=== PATIENT | male | born 1980 | race Caucasian/White ===

== ENCOUNTER 2016-10-10 16:10 | Emergency (ER) | payer OTHER ==
[~2016-10-10] VITALS: Ht 177.8 cm; Wt 108.9 kg
[2016-10-10] MEDS ORDERED: IBUP600T26 PO (16:25)
[2016-10-10] MEDS ORDERED: RANI300C PO (16:25)
[2016-10-10] MEDS ORDERED: FLON1SPR (16:25)
[2016-10-10] MEDS ORDERED: LYRI100C10 PO (16:25)
[2016-10-10] MEDS ORDERED: CYCL10TA PO (16:25)
[2016-10-10] MEDS ORDERED: ZYRT10CA PO (16:25)
[2016-10-10] MEDS ORDERED: OXYC1SOL PO (16:25)
[2016-10-10] MEDS ORDERED: ONDANSETRON 4MG/2ML VIAL (J2405) IV ONE (17:15)
[2016-10-10] MEDS ORDERED: NS 1,000 ML IV ONE ×2 (17:15→18:45)
[2016-10-10 17:26] LABS: BASO % 0.2 % (0.0-1.0); EOS # 0.1 K/mm3 (0.0-0.50); EOS % 1.1 % (0.0-3.0); LARGE UNSTAINED CELL # 0.2 K/mm3 (0.0-0.4); LARGE UNSTAINED CELL % 1.5 % (0.0-4.0); LYMPH # 0.9 K/mm3 (1.5-4.5); LYMPH % 7.8 % (24.0-44.0); MEAN CORPUSCULAR HGB CONC 34.5 g/dl (32.0-36.5); MEAN CORPUSCULAR VOLUME 86.7 fl (80.0-96.0); MONO # 0.6 K/mm3 (0.0-0.8); MONO % 5.4 % (0.0-5.0); NEUTROPHILS # 9.7 K/mm3 (1.8-7.7); PLATELET COUNT, AUTOMATED 178 k/mm3 (150-450); RED CELL DISTRIBUTION WIDTH 12.9 % (11.5-14.5); WHITE BLOOD COUNT 11.5 K/mm3 (4.0-10.0)
[2016-10-10 17:52] LABS: ALBUMIN 4.1 GM/DL (3.2-5.2); ALBUMIN/GLOBULIN RATIO 1.21 (1.00-1.93); ALKALINE PHOSPHATASE 50 U/L (45-117); ALT/SGPT 56 U/L (12-78); AMYLASE 39 U/L (25-115); ANION GAP 9 MEQ/L (8-16); AST/SGOT 35 U/L (15-37); BILIRUBIN,DIRECT 0.2 MG/DL (0.0-0.2); BILIRUBIN,TOTAL 0.8 MG/DL (0.2-1.0); BLOOD UREA NITROGEN 17 MG/DL (7-18); CALCIUM LEVEL 8.7 MG/DL (8.5-10.1); CARBON DIOXIDE LEVEL 23 MEQ/L (21-32); CHLORIDE LEVEL 106 MEQ/L (98-107); CREATININE FOR GFR 1.05 MG/DL (0.70-1.30); GLOMERULAR FILTRATION RATE > 60.0 (>60); GLUCOSE, FASTING 111 MG/DL (70-105); POTASSIUM SERUM 4.1 MEQ/L (3.5-5.1); SODIUM LEVEL 138 MEQ/L (136-145); TOTAL PROTEIN 7.5 GM/DL (6.4-8.2)
[2016-10-10] MEDS ORDERED: ISOVUE-370 76% 100ML VIAL (Q9967) As Ordered ONE (18:09)
--- NOTE | 2016-10-10 18:10 | REP ---
ABDOMINAL SERIES: REASON: Abdominal pain. COMPARISON: No priors. FINDINGS: Supine and upright views of the abdomen show the intestinal gas pattern to be nonspecific. Gas and stool is seen throughout the colon within the rectosigmoid region. The organ silhouettes insofar as delineated appear unremarkable. No abdominal calcific densities are seen within the abdomen or pelvis. The accompanying single frontal view of the chest shows no free subdiaphragmatic air, cardiomegaly, infiltrates or effusions. IMPRESSION: Nonspecific intestinal gas pattern. Signed by Florencio Banks DO 10/10/2016 07:11 P
--- NOTE | 2016-10-10 19:30 | REP ---
CT ABDOMEN AND PELVIS WITH IV CONTRAST ONLY: REASON: Abdominal pain. PRIORS: None. CONTRAST: 100 mL [id number]. The lung bases are clear. The liver, gallbladder, spleen, pancreas, adrenal glands, and kidneys are within normal limits. The abdominal aorta and paraaortic regions are within normal limits. There are a few nonenlarged lymph nodes in the celiac axis and adjacent to the superior mesenteric artery. There is no free fluid or free air. The bowel loops and their mesenteries are within normal limits. There is no intraabdominal mass or adenopathy. CT PELVIS: There Is no mass or adenopathy. There Is no free fluid or free air. The bowel loops and their mesenteries are within normal limits. Bone window technique throughout the exam shows the osseous structure to be within normal limits for the patient's age. IMPRESSION: CT findings are within normal limits. Signed by Florencio Banks DO 10/10/2016 07:34 P
[2016-10-10] MEDS ORDERED: ZOFR4TAB3 PO (19:52)
[2016-10-10 20:10] VITALS: BP 128/64
== END 2016-10-10 20:41 | disposition home or self-care (01) ==
LOC: M ED 17:12
DX: R10.9 Unspecified abdominal pain (principal); R11.10 Vomiting, unspecified
CPT/HCPCS: 74022; 74177; 80048; 80076; 81001; 82150; 83605; 83690; 85025; 87040; 87086; 93041; 96361; 96374; 99284; J2405; Q9967

== ENCOUNTER 2017-04-06 18:05 | Emergency (ER) | payer OTHER ==
[~2017-04-06] VITALS: Ht 177.8 cm; Wt 113.6 kg
[~2017-04-06 18:05] MED LIST: CYCL10TA PO; FLON1SPR; IBUP-1022 PO; OXYC1SOL3 PO; PREG100CA PO; RANI300C PO; ZOFR4TAB3 PO; ZYRT10CA PO
[2017-04-06] MEDS ORDERED: NYQU1LIQ PO (18:16)
[2017-04-06] MEDS ORDERED: ONDANSETRON 4MG/2ML VIAL (J2405) IV ONE (18:45)
[2017-04-06] MEDS ORDERED: NS 1,000 ML IV ONE (18:45)
[2017-04-06] MEDS ORDERED: PANTOPRAZOLE 40MG INJ (PROTONIX) (C9113) IV ONE (18:45)
[2017-04-06] MEDS ORDERED: IPRATROPIUM 0.5MG/ALBUTEROL 2.5MG INH SOL UD 3ML (DUONEB)(J7620) NEB ONE (18:45)
--- NOTE | 2017-04-06 19:19 | REP ---
Abdominal series: Four views. History: Abdominal pain. Findings: Upright chest radiograph shows no evidence of infiltrate or free subdiaphragmatic air. Heart is not enlarged. Pulmonary vasculature is not increased. Supine and erect views of the abdomen demonstrate one or two small air-fluid levels in the colon. The abdomen is largely gasless. No large or small bowel dilation is seen. Psoas margins and flank stripes are intact. No mass or organomegaly is seen. No pathologic calcification noted. Impression: Small quantity of air and fluid in the colon. Otherwise essentially gasless abdomen. No other significant finding. Signed by Raffaele Connor MD 04/06/2017 07:51 P
[2017-04-06 19:48] LABS: BASO # 0.1 10^3/uL (0.0-0.2); BASO % 0.6 % (0.0-1.0); EOS # 0.2 10^3/uL (0.0-0.50); EOS % 1.3 % (0.0-3.0); IMMATURE GRANULOCYTE % 0.3 % (0-0); LYMPH # 1.5 10^3/uL (1.5-4.5); LYMPH % 11.9 % (24.0-44.0); MEAN CORPUSCULAR HGB CONC 35.3 g/dl (32.0-36.5); MEAN CORPUSCULAR VOLUME 84.9 fl (80.0-96.0); MONO # 1.2 10^3/uL (0.0-0.8); MONO % 9.4 % (0.0-5.0); NEUTROPHILS # 9.8 10^3/uL (1.8-7.7); NEUTROPHILS % 76.5 % (36.0-66.0); PLATELET COUNT, AUTOMATED 292 10^3/uL (150-450); WHITE BLOOD COUNT 12.9 10^3/uL (4.0-10.0)
[2017-04-06 19:57] VITALS: BP 123/93
[2017-04-06 20:19] LABS: ALBUMIN 5.1 GM/DL (3.2-5.2); ALBUMIN/GLOBULIN RATIO 1.19 (1.00-1.93); BILIRUBIN,DIRECT 0.2 MG/DL (0.0-0.2); BILIRUBIN,TOTAL 0.7 MG/DL (0.2-1.0); CALCIUM LEVEL 10.4 MG/DL (8.5-10.1); CREATININE FOR GFR 1.65 MG/DL (0.70-1.30); POTASSIUM SERUM 4.2 MEQ/L (3.5-5.1); TOTAL PROTEIN 9.4 GM/DL (6.4-8.2)
[2017-04-06] MEDS ORDERED: MORPHINE 4 MG/ML 1ML SYRINGE IV ONE (20:30)
[2017-04-06] MEDS ORDERED: ZOFR4TAB3 PO (20:46)
== END 2017-04-06 21:06 | disposition home or self-care (01) ==
LOC: M ED 18:05
DX: K52.9 Noninfective gastroenteritis and colitis, unspecified (principal); G89.29 Other chronic pain; Z79.899 Other long term (current) drug therapy; Z87.891 Personal history of nicotine dependence
CPT/HCPCS: 74022; 80048; 80076; 82150; 83690; 85025; 94640; 96361; 96374; 96375; 99283; C9113; J2405

== ENCOUNTER 2020-06-25 14:40 | Emergency (ER) | payer OTHER ==
[~2020-06-25] VITALS: Ht 177.8 cm; Wt 109.6 kg
[~2020-06-25 14:40] MED LIST changes: +CYCL-707 PO; -CYCL10TA PO; +NYQU1LIQ PO; +ZOFR4TAB14 PO; -ZOFR4TAB3 PO
[2020-06-25 14:41] VITALS: BP 133/76
[2020-06-25] MEDS ORDERED: predniSONE 20 MG TAB PO ONE (18:30)
[2020-06-25] MEDS ORDERED: LIDOCAINE 5% (LIDODERM) PATCH TD ONE (18:30)
[2020-06-25] MEDS ORDERED: KETOROLAC 60MG 2ML VIAL IM ONE (18:30)
[2020-06-25] MEDS ORDERED: diazePAM 5MG TABLET PO ONE (18:30)
[2020-06-25] MEDS ORDERED: **NOTE PATIENT COMMENT** MISC XX SCH (21:00)
== END 2020-06-25 18:37 | disposition left against medical advice (07) ==
LOC: M ED 14:40
DX: M54.5 Low back pain (principal); I10 Essential (primary) hypertension; F33.9 Major depressive disorder, recurrent, unspecified; F41.9 Anxiety disorder, unspecified; K21.9 Gastro-esophageal reflux disease without esophagitis; Z79.899 Other long term (current) drug therapy

== ENCOUNTER → 2020-08-03 | Outpatient (CLI) | payer SELFPAY | LOC: M LABSMTC 10:46 | PROVIDERS: ATTEND Pediatrics | DX: Z20.822 Contact with and (suspected) exposure to COVID-19 (principal) ==

== ENCOUNTER 2021-02-26 17:38 | Emergency (ER) | payer MEDICAID, OTHER ==
[~2021-02-26] VITALS: Ht 177.8 cm; Wt 101.7 kg
--- NOTE | 2021-02-26 19:01 | REP ---
INDICATION: CHEST PAIN. COMPARISON: Comparison chest x-ray April 06, 2017. TECHNIQUE: Portable upright AP chest radiograph. Two views. FINDINGS: The lungs are well inflated and free of infiltrate. Pleural angles are sharp. Heart size is normal. Pulmonary vasculature is not increased. EKG monitoring electrodes are visible. IMPRESSION: No active disease. <Electronically signed by Jesus Connor > 02/26/21 [id number]
[2021-02-26 19:02] LABS: BLOOD UREA NITROGEN 12 MG/DL (7-18); CALCIUM LEVEL 9.2 MG/DL (8.5-10.1); CARBON DIOXIDE LEVEL 26 MEQ/L (21-32); CHLORIDE LEVEL 105 MEQ/L (98-107); CK-MB VALUE MASS 3.3 NG/ML (<3.6); CPK CREATINE PHOSPHOKINASE 209 U/L (39-308); CREATININE FOR GFR 1.23 MG/DL (0.70-1.30); GLOMERULAR FILTRATION RATE > 60.0 (>60); GLUCOSE, FASTING 100 MG/DL (70-100); MB/CK RELATIVE INDEX 1.58 (< OR =4); POTASSIUM SERUM 3.3 MEQ/L (3.5-5.1); SODIUM LEVEL 138 MEQ/L (136-145); TROPONIN I < 0.02 NG/ML (< 0.10)
[2021-02-26 19:04] LABS: BASO % 0.5 % (0.0-1.0); EOS # 0.1 10^3/uL (0.0-0.5); EOS % 1.1 % (0.0-3.0); HEMATOCRIT 47.1 % (42.0-52.0); HEMOGLOBIN 16.6 g/dl (13.5-17.5); LYMPH # 3.2 10^3/uL (1.5-5.0); LYMPH % 37.3 % (24.0-44.0); MEAN CORPUSCULAR HGB CONC 35.2 g/dl (32.0-36.5); MONO # 0.8 10^3/uL (0.0-0.8); MONO % 9.3 % (2.0-8.0); NEUTROPHILS # 4.4 10^3/uL (1.5-8.5); NEUTROPHILS % 51.4 % (36.0-66.0); PLATELET COUNT, AUTOMATED 222 10^3/uL (150-450); RED BLOOD COUNT 5.54 10^6/uL (4.30-6.10); WHITE BLOOD COUNT 8.5 10^3/uL (4.0-10.0)
[2021-02-26 21:34] VITALS: BP 132/92
--- NOTE | 2021-02-27 19:21 | ECGEPIP ---
[facility] - ED Test Date: 2021-02-26 Pat Name: BEATRIZ MARCUS Department: Room: - Gender: Male [employer]: : 1980 Requested By: Donovan Felipe Order Number: [id number] Reading MD: Anitha Paez Measurements Intervals [place] Rate: 90 P: 70 PA: 142 QRS: 57 QRSD: 80 T: 14 QT: 356 QTc: 435 Interpretive Statements Normal sinus rhythm with sinus arrhythmia Nonspecific ST T wave changes No prior ECG for comparison Electronically Signed on 02-27-2021 19:21:49 EDT by Anitha Paez
== END 2021-02-26 21:37 | disposition home or self-care (01) ==
LOC: M ED 17:38
DX: R07.89 Other chest pain (principal); R06.02 Shortness of breath; M54.12 Radiculopathy, cervical region; E87.6 Hypokalemia; I10 Essential (primary) hypertension; E78.5 Hyperlipidemia, unspecified; K21.9 Gastro-esophageal reflux disease without esophagitis; K58.9 Irritable bowel syndrome, unspecified; G43.909 Migraine, unspecified, not intractable, without status migrainosus; F43.10 Post-traumatic stress disorder, unspecified; M51.9 Unspecified thoracic, thoracolumbar and lumbosacral intervertebral disc disorder; R90.82 White matter disease, unspecified; Z79.899 Other long term (current) drug therapy; Z87.891 Personal history of nicotine dependence

== ENCOUNTER → 2021-04-24 | Outpatient (CLI) | payer OTHER | LOC: M LABSMTC 10:04 | PROVIDERS: ATTEND Pediatrics | DX: Z20.822 Contact with and (suspected) exposure to COVID-19 (principal) | CPT/HCPCS: C9803; U0003 ==